=== PATIENT | male | born 1950 | race Caucasian/White ===

== ENCOUNTER 2022-01-29 05:39 | Observation (INO) | payer MEDICARE ==
[2022-01-20 11:46] LABS: BASOPHILS # (AUTO) 0.1 X10'3 (0-0.2); BASOPHILS % (AUTO) 1.1 % (0-1); EOSINOPHILS # (AUTO) 0.1 X10'3 (0-0.9); LYMPHOCYTES # (AUTO) 1.1 X10'3 (1.1-4.8); LYMPHOCYTES % (AUTO) 18.9 % (21-51); MEAN CORPUSCULAR HEMOGLOBIN 29.6 PG (27.0-31.0); MEAN CORPUSCULAR HGB CONC 33.2 g/dL (33.0-36.5); MEAN CORPUSCULAR VOLUME 89.2 FL (78-98); MEAN PLATELET VOLUME 7.1 FL (7.4-10.4); MONOCYTES # (AUTO) 0.6 X10'3 (0-0.9); NEUTROPHILS # (AUTO) 3.9 X10'3 (1.8-7.7); PRE OP HEMATOCRIT 44.4 % (42.0-52.0); PRE OP HEMOGLOBIN 14.7 g/dL (14.0-17.9); PRE OP PLATELET COUNT 313 X10'3 (140-440); RED BLOOD COUNT 4.97 X10'6 (4.70-6.10); RED CELL DISTRIBUTION WIDTH 14.4 % (11.5-14.5)
[2022-01-20 11:58] LABS: ALBUMIN 4.2 G/DL (3.4-5.0); ALBUMIN/GLOBULIN RATIO 1.4 (1.1-1.5); ALKALINE PHOSPHATASE 57 IU/L (46-116); BLOOD UREA NITROGEN 18 MG/DL (7-18); CALCIUM 9.9 MG/DL (8.5-10.1); CHLORIDE 103 MMOL/L (99-107); CREATININE 1.06 MG/DL (0.60-1.10); PRE OP ALT 32 U/L (30-65); PRE OP ANION GAP 7 (8-16); PRE OP AST 25 U/L (10-37); PRE OP BILIRUB, TOTAL 0.5 MG/DL (0.0-1.0); PRE OP POTASSIUM 4.5 MMOL/L (3.4-5.1); PRE OP SODIUM 136 MMOL/L (135-145); TOTAL CARBON DIOXIDE 26.5 MMOL/L (24-32); TOTAL PROTEIN 7.2 G/DL (6.4-8.2); eGFR 69 ML/MIN
[2022-01-20 12:00] LABS: PRE OP GLUCOSE 94 MG/DL (70-104)
[~2022-01-29] VITALS: Ht 170.2 cm; Wt 79.8 kg
[2022-01-29] VITALS (26 sets, daily range): BP systolic 115–172; BP diastolic 66–98
[~2022-01-29 05:39] MED LIST: OMEP20CA16 PO; ceFAZolin inj. 2,000 MG in dextrose 5%-water 100 ML IV ONE; famotidine 20mg tablet PO ONE; ringers solution, lacted 1,000 ML IV SCH; tranexamic acid inj. 800 MG in normal saline 100ml IV soln 92 ML IV ONE; vancomycin 1,500 MG in NS 300ml IV soln IV ONE
--- NOTE | 2022-01-29 06:40 | NUR ---
CSM'S INTACT. RIGHT DORSALIS PEDIS PULSE MARKED (+2). PT STATES HE COMPLETED THE 5 DAYS OF OINTMENT AND SHOWERS PER TOTAL JOINT PROTOCOL, HOWEVER HE FORGOT TO WATCH THE DVD THAT HE WAS GIVEN, STATES HE HAS HAD 3 TOTAL JOINTS ALREADY AND KNOWS WHAT TO EXPECT. Addendum: 01/29/22 at 0656 by Gracia Ford RN Amended: Links added.
[2022-01-29] MEDS ORDERED: tetracaine 1% (10mg/ml) pres. free inj. ONE (07:00)
[2022-01-29] MEDS ORDERED: ROPIVAcaine 0.5% (5mg/ml) 30ml vial ONE ×2 (07:00→07:07)
[2022-01-29] MEDS ORDERED: vancomycin 1,000mg inj ONE (07:06)
[2022-01-29] MEDS ORDERED: ketorolac trometh. 30mg/ml inj. ONE (07:06)
[2022-01-29] MEDS ORDERED: morphine 10mg/ml inj. ONE (07:08)
[2022-01-29] MEDS ORDERED: aprepitant 40mg capsule PO ONE (07:12)
[2022-01-29] MEDS ORDERED: MIDAZolam 1mg/ml 10ml vial ONE (07:52)
[2022-01-29] MEDS ORDERED: fentaNYL/PF 50MCG/1 ML 2ML syringe ONE (07:55)
[2022-01-29] MEDS ORDERED: propofol inj 20 ML IV ONE ×3 (08:24→08:25)
[2022-01-29] MEDS ORDERED: ePHEDrine 50MG/ML INJ. ONE (08:33)
[2022-01-29] MEDS ORDERED: epiNEPHrine 1 mg/ml inj ONE (08:38)
[2022-01-29] MEDS ORDERED: hydrALAZINE 20mg/ml inj. IV PRN (09:05)
[2022-01-29] MEDS ORDERED: labetalol 20mg/4ml (5mg/ml) syringe IV PRN (09:05)
[2022-01-29] MEDS ORDERED: HYDROmorphone/PF 0.2 MG/ML SYRINGE IV PRN ×2 (09:05)
[2022-01-29] MEDS ORDERED: ROPIVAcaine 0.2%/PF PUMP/bolus 545 ML ADDCANAL SCH (09:05)
[2022-01-29] MEDS ORDERED: fentaNYL/PF 50MCG/1 ML 2ML syringe IV PRN ×2 (09:05)
[2022-01-29] MEDS ORDERED: ondansetron/PF 4mg/2ml inj IV PRN ×2 (09:05→09:45)
[2022-01-29] MEDS ORDERED: acetaminophen 1,000mg/100ml IV 100 ML IV PRN (09:05)
[2022-01-29] MEDS ORDERED: ringers solution, lacted 1,000 ML IV SCH (09:05)
[2022-01-29] MEDS ORDERED: ROPIVAcaine 0.2% (10 MG/5 ML) BOLUS INJECTION ADDCANAL PRN (09:05)
[2022-01-29] MEDS ORDERED: proMETHazine 25mg rectal suppository RC PRN (09:05)
[2022-01-29] MEDS ORDERED: proCHLORperazine 10 MG/2 ml inj IV PRN (09:05)
[2022-01-29] MEDS ORDERED: diphenhydrAMINE 25mg capsule PO PRN ×2 (09:45)
[2022-01-29] MEDS ORDERED: bisacodyl 10mg suppository rectal RC PRN (09:45)
[2022-01-29] MEDS ORDERED: acetaminophen 325mg tablet PO PRN (09:45)
[2022-01-29] MEDS ORDERED: oxyCODONE IR 5mg (immed. release) tablet PO PRN ×2 (09:45)
[2022-01-29] MEDS ORDERED: magnesium hydroxide 30ml (MOM) UD suspension PO PRN (09:45)
[2022-01-29] MEDS ORDERED: HYDROmorphone 1 mg/ml syringe IV PRN (09:45)
[2022-01-29] MEDS ORDERED: naloxone 0.4 mg/ml inj IV PRN (09:45)
[2022-01-29] MEDS ORDERED: HYDROmorphone inj. 0.5 MG/0.5 ML DISP.SYRIN IV PRN (09:45)
[2022-01-29] MEDS ORDERED: tranexamic acid inj. 0 MG in normal saline 100ml IV soln 100 ML IV ONE (09:45)
--- NOTE | 2022-01-29 09:56 | NUR ---
Received from OR via [facility], accompanied by Anesthesiologist DR LYONS and report given by Anesthesiolgist. PT PRESENTS WITH 20G LEFT WRIST, RIGHT KNEE WRAP WITH POWDER PACK AND ON-Q READY. VSS. Addendum: 01/29/22 at 1013 by Lesa Garay RN, RN Amended: Links added.
--- NOTE | 2022-01-29 10:31 | NUR ---
PT SITTING UP IN BED EATING ICE CHIPS. Addendum: 01/29/22 at 1032 by Lesa Garay RN, RN Amended: Links added.
--- NOTE | 2022-01-29 12:16 | NUR ---
Report called to receiving nurse JORGE AGUIAR. Transferred via [facility] BED TO ROOM 4020A. BED IN LOW LOCKED POSITION, CALL LIGHT IN REACH, PT HOOKED UP TO VITALS MACHINE. Belongings WERE LEFT WITH PT DURING SURGERY. Special Issues communicated to receiving nurse. Addendum: 01/29/22 at 1242 by Lesa Garay RN RN Amended: Links added.
[2022-01-29] MEDS: gabapentin 300mg capsule PO SCH ×2 (13:00→20:20)
[2022-01-29] MEDS ORDERED: tranexamic acid inj. 800 MG in normal saline 100ml IV soln 100 ML IV ONE (13:00)
[2022-01-29] MEDS ORDERED: tranexamic acid inj. 1,000 MG in 0.7% saline 100 ML PMX IV ONE (13:30)
[2022-01-29] MEDS: acetaminophen 325mg tablet PO SCH ×2 (14:00→20:20)
[2022-01-29] MEDS: potassium cl 20mEq in 1/2 NS 1,000 ML IV SCH ×2 (14:34→20:11)
[2022-01-29] MEDS ORDERED: sennosides 8.6mg tablet PO SCH (21:00)
[2022-01-30] MEDS: acetaminophen 325mg tablet PO SCH ×2 (01:29→08:03)
[2022-01-30 01:43] VITALS: BP 144/86
[2022-01-30] MEDS: potassium cl 20mEq in 1/2 NS 1,000 ML IV SCH (01:45)
[2022-01-30 06:00] VITALS: BP 131/84
--- NOTE | 2022-01-30 06:21 | NUR ---
reported to days. noted pt anticipates going home this am.
--- NOTE | 2022-01-30 06:52 | NUR ---
Patient in room ORTHO 4020. I have received report from Brigid AGUIAR and had the opportunity to ask questions and assume patient care.
[2022-01-30] MEDS ORDERED: enoxaparin 40mg/0.4ml syringe SQ SCH (08:00)
[2022-01-30] MEDS: gabapentin 300mg capsule PO SCH (08:03)
[2022-01-30] MEDS ORDERED: ASPI81TA52 PO (08:35)
--- NOTE | 2022-01-30 10:53 | NUR ---
Patient discharge, went over discharge instructions with him. And to take it slow getting back to his avid walking.
[2022-01-30] MEDS ORDERED: celeCOXIB 100mg capsule PO SCH (20:00)
[2022-01-31] MEDS ORDERED: acetaminophen 325mg tablet PO PRN (09:45)
== END 2022-01-30 10:20 | disposition home or self-care (01) ==
LOC: PAS IN 05:39 → INTOOBSV 05:39 → ORTHO 4S 12:41
PROVIDERS: ADMIT Orthopaedic Surgery; ATTEND Orthopaedic Surgery
DX: M23.51 Chronic instability of knee, right knee (principal); K21.9 Gastro-esophageal reflux disease without esophagitis; Z85.828 Personal history of other malignant neoplasm of skin; Z96.651 Presence of right artificial knee joint
CPT/HCPCS: 27486; 36415; 80053; 82948; 85025; 87081; 93005; 96365; 96366; 96367; 96372; 97110; 97116; 97161; 97530; C1776; G0378; J0171; J0690; J1650; J1885; J2250; J2274; J2704; J2795; J3010; J3370; J3480; J3490; J7040; J7060; J7120; J8501; A4215; A7000; C9250